=== PATIENT | male | born 1970 | race Native Hawaiian/Other Pacific Islander ===

== ENCOUNTER 2016-11-18 17:14 | Outpatient (CLI) | payer BC ==
[~2016-11-18 17:14] MED LIST: ACET-689 PO; ALEVE220 M1 PO; ASPIRIN ADULT L81 MG PO; CEFTRIAXONE250 MG IJ; CEPHALEXIN500 MG PO; CYCLOBENZAPR7.5 MG PO; FURO40TA93 PO; GLUCOSAMINE1500 CO1 PO; KLOR-CON 1010 MEQ OR; LEVO0.1519 PO; LISI20TA11 PO; METFTAB PO; NAPROSYN500 MG PO; NYST100048 PO; OMEP40CA PO; RYBIX ODT50 MG PO
== END 2016-11-18 19:09 | disposition home or self-care (01) ==
LOC: LABW 17:14
DX: Z11.59 Encounter for screening for other viral diseases (principal)
CPT/HCPCS: 36415; 86706

== ENCOUNTER 2017-01-16 21:21 | Emergency (ER) | payer BC ==
[~2017-01-16] VITALS: Ht 193 cm; Wt 154.2 kg
[2017-01-16 23:01] LABS: PLATELET COUNT 201 K/uL (142-355)
[2017-01-16 23:11] LABS: POTASSIUM 4.1 mmol/L (3.6-5.2); SODIUM 138 mmol/L (136-145)
[2017-01-16 23:35] VITALS: BP 132/72; TEMP 98.3
== END 2017-01-16 23:43 | disposition home or self-care (01) ==
LOC: ED 21:21
DX: S93.491A Sprain of other ligament of right ankle, initial encounter (principal); N39.0 Urinary tract infection, site not specified; X58.XXXA Exposure to other specified factors, initial encounter; Y92.098 Other place in other non-institutional residence as the place of occurrence of the external cause
CPT/HCPCS: 36415; 80053; 81000; 84550; 85027; 87077; 87086; 87088; 87186; 96372; 99283; J1885; J2175; L4350

== ENCOUNTER 2017-01-22 11:04 | Outpatient (CLI) | payer BC | END 2017-01-22 19:07 | disposition home or self-care (01) | LOC: MRI 11:04 | DX: M25.571 Pain in right ankle and joints of right foot (principal) ==

== ENCOUNTER 2018-02-15 10:36 | Outpatient (CLI) | payer BC | END 2018-02-15 19:32 | disposition home or self-care (01) | LOC: LABW 10:36 | PROVIDERS: Internal Medicine | DX: E11.9 Type 2 diabetes mellitus without complications (principal); M10.9 Gout, unspecified; E29.1 Testicular hypofunction; I10 Essential (primary) hypertension; M25.512 Pain in left shoulder | CPT/HCPCS: 36415; 80053; 80061; 81000; 82043; 82570; 83036; 84402; 84439; 84443; 84550 ==

== ENCOUNTER 2018-04-22 09:16 | Outpatient (CLI) | payer BC | END 2018-04-22 19:05 | disposition home or self-care (01) | LOC: US 09:16 | DX: R10.11 Right upper quadrant pain (principal) ==

== ENCOUNTER 2018-09-17 08:16 | Outpatient (CLI) | payer BC | END 2018-09-17 19:19 | disposition home or self-care (01) | LOC: RAD 08:16 | DX: M79.672 Pain in left foot (principal) ==

== ENCOUNTER 2018-09-23 08:04 | Outpatient (CLI) | payer BC ==
[2018-09-23 08:37] LABS: PLATELET COUNT 207 K/uL (142-355)
== END 2018-09-23 22:20 | disposition home or self-care (01) ==
LOC: LABW 08:04
PROVIDERS: Internal Medicine
DX: E11.9 Type 2 diabetes mellitus without complications (principal); I10 Essential (primary) hypertension; E29.1 Testicular hypofunction
CPT/HCPCS: 36415; 80053; 80061; 81000; 82043; 82570; 83036; 84439; 84443; 84550; 85027

== ENCOUNTER 2019-08-26 06:09 | Emergency (ER) | payer BC ==
[~2019-08-26] VITALS: Ht 193 cm; Wt 158.8 kg
[2019-08-26 06:15] VITALS: TEMP 97.5
[2019-08-26 07:35] VITALS: BP 155/90
== END 2019-08-26 07:37 | disposition home or self-care (01) ==
LOC: ED 06:09
DX: J10.1 Influenza due to other identified influenza virus with other respiratory manifestations (principal); R05 Cough
CPT/HCPCS: 87502; 87651; 99283

== ENCOUNTER 2020-04-07 07:10 | Emergency (ER) | payer BC ==
[~2020-04-07] VITALS: Ht 193 cm; Wt 158.8 kg
[2020-04-07 08:22] LABS: PLATELET COUNT 174 K/uL (142-355)
[2020-04-07 08:42] LABS: SODIUM 139 mmol/L (136-145)
[2020-04-07 08:43] LABS: PARTIAL THROMBOPLASTIN TIME 26.9 SECONDS (24.5-33.6)
[2020-04-07 10:19] VITALS: BP 135/89; TEMP 98
== END 2020-04-07 10:20 | disposition still patient (30) ==
LOC: ED 07:10
PROVIDERS: Hospitalist
DX: U07.1 COVID-19 (principal); J06.9 Acute upper respiratory infection, unspecified; R05 Cough; J02.9 Acute pharyngitis, unspecified; M25.50 Pain in unspecified joint; R06.02 Shortness of breath
CPT/HCPCS: 36415; 80053; 81000; 82550; 83880; 84484; 85027; 85610; 85730; 87502; 87635; 87651; 93005; 99283; G2023; U0003

== ENCOUNTER 2021-06-19 08:03 | Emergency (ER) | payer BC ==
[~2021-06-19] VITALS: Ht 193 cm; Wt 170.1 kg
[2021-06-19 08:10] VITALS: TEMP 97
[2021-06-19 09:02] LABS: POTASSIUM 4.2 mmol/L (3.6-5.2)
[2021-06-19 09:12] LABS: PLATELET COUNT 185 K/uL (142-355)
[2021-06-19 09:59] VITALS: BP 120/81
== END 2021-06-19 09:59 | disposition home or self-care (01) ==
LOC: ED 08:03
PROVIDERS: Emergency Medicine
DX: M10.9 Gout, unspecified (principal); M20.5X1 Other deformities of toe(s) (acquired), right foot; N28.9 Disorder of kidney and ureter, unspecified; E66.8 Other obesity
CPT/HCPCS: 80048; 84550; 85027; 96372; 99283; J3490

== ENCOUNTER 2022-09-03 10:24 | Emergency (ER) | payer BC ==
[~2022-09-03] VITALS: Ht 193 cm; Wt 174.6 kg
[2022-09-03 10:45] VITALS: TEMP 98.4
[2022-09-03 11:46] LABS: PLATELET COUNT 199 K/uL (142-355); POTASSIUM 3.7 mmol/L (3.6-5.2)
[2022-09-03 11:54] LABS: PARTIAL THROMBOPLASTIN TIME 27.9 SECONDS (24.5-33.6)
[2022-09-03 12:50] VITALS: BP 118/74
== END 2022-09-03 13:01 | disposition home or self-care (01) ==
LOC: ED 10:24
PROVIDERS: Emergency Medicine
DX: I83.93 Asymptomatic varicose veins of bilateral lower extremities (principal); S81.832A Puncture wound without foreign body, left lower leg, initial encounter; Z79.82 Long term (current) use of aspirin; W22.8XXA Striking against or struck by other objects, initial encounter; Y92.89 Other specified places as the place of occurrence of the external cause
CPT/HCPCS: 80053; 85027; 85610; 85730; 99283

== ENCOUNTER 2022-09-19 09:55 | Outpatient (CLI) | payer BC | END 2022-09-19 19:01 | disposition home or self-care (01) | LOC: LAB 09:55 | PROVIDERS: ATTEND Internal Medicine | DX: E03.8 Other specified hypothyroidism (principal) | CPT/HCPCS: 36415; 84439; 84443 ==

== ENCOUNTER 2022-10-19 09:51 | Outpatient (CLI) | payer BC | END 2022-10-19 18:56 | disposition home or self-care (01) | LOC: RAD 09:51 | PROVIDERS: ATTEND Internal Medicine | DX: L08.9 Local infection of the skin and subcutaneous tissue, unspecified (principal) ==

== ENCOUNTER 2022-10-26 08:33 | Outpatient (CLI) | payer BC | END 2022-10-26 20:07 | disposition home or self-care (01) | LOC: MRI 08:33 | PROVIDERS: ATTEND Family Medicine | DX: L08.9 Local infection of the skin and subcutaneous tissue, unspecified (principal) | CPT/HCPCS: 36415; 82565; 84520; A9576 ==

== ENCOUNTER 2023-01-19 07:35 | Outpatient (CLI) | payer BC | END 2023-01-19 19:10 | disposition home or self-care (01) | LOC: LABW 07:35 | PROVIDERS: ATTEND Podiatrist | DX: E11.65 Type 2 diabetes mellitus with hyperglycemia (principal); M10.071 Idiopathic gout, right ankle and foot | CPT/HCPCS: 36415; 83036; 84550 ==